=== PATIENT | female | born 1945 | race Caucasian/White ===

== ENCOUNTER 2019-06-03 02:11 | Emergency (ER) | payer MEDICARE ==
[~2019-06-03] VITALS: Ht 172.7 cm; Wt 104.3 kg
[2019-06-03 02:20] VITALS: BP_SYST 139
--- NOTE | 2019-06-03 02:20 | NUR ---
Patient to ER bed 4 to gown for evaluation. Side rails up.
--- NOTE | 2019-06-03 02:30 | NUR ---
# 20 gauge angiocath placed to LAC. Use of asceptic technique. Opsite placed over site. Blood return noted. Blood for lab drawn from site. Flushed with 20 cc of normal saline. No evidence of infiltration noted. Patient tolerated well.
--- NOTE | 2019-06-03 02:30 | NUR ---
Pt brought in by [facility]. Pt awake, alert, oriented x4 upon presenting to the ED. [facility] S[facility] states that patient was found in bed with blood sugar of 42, unresponsive. Unable to obtain IV access, pt was given 1ml glucagon. Recheck of blood sugar at 0230 was 117mg/dl. Pt states she has no recollection of events. Pt Denies chest pain, nausea, vomiting diarrhea, shortness of breath. Pt restin gin ED bed no signs of distress at this time. Pt remains to be lethargic
--- NOTE | 2019-06-03 03:00 | NUR ---
Pt family bedside. Speaking with patient
--- NOTE | 2019-06-03 03:15 | NUR ---
Pt given additional warm blanket and non-skid socks
[2019-06-03 03:29] LABS: BASOPHILS % (AUTO) 0.3 % (0.0-2.0); EOSINOPHILS # (AUTO) 0.1 K/uL (0.0-0.4); EOSINOPHILS % (AUTO) 0.3 % (0.0-4.0); HEMATOCRIT 34.3 % (36-48); HEMOGLOBIN 11.3 g/dL (12.0-16.0); LYMPHOCYTES # (AUTO) 1.6 K/uL (1.0-5.5); LYMPHOCYTES % (AUTO) 8.6 % (20.5-51.5); MEAN CORPUSCULAR HEMOGLOBIN 29 pg (27-31); MEAN CORPUSCULAR HGB CONC 33 % (32-36); MEAN CORPUSCULAR VOLUME 89 fL (79.0-98.0); MONOCYTES # (AUTO) 0.8 K/uL (0.0-1.0); MONOCYTES % (AUTO) 4.5 % (1.7-9.3); NEUTROPHILS # (AUTO) 15.7 K/uL (1.8-7.7); NEUTROPHILS % (AUTO) 86.3 % (40.0-70.0); PLATELET COUNT (AUTO) 242 K/uL (130-430); RED BLOOD CELL COUNT(AUTO) 3.86 MIL/uL (4.2-6.2); RED CELL DISTRIBUTION WIDTH 12.8 % (9.0-15.0); WHITE BLOOD COUNT (AUTO) 18.2 K/uL (4.8-10.8)
--- NOTE | 2019-06-03 03:30 | NUR ---
Pt given small juice and turkey sandwich
[2019-06-03 03:45] LABS: ANION GAP 9 (5-15); CALCIUM 9.1 mg/dL (8.4-11.0); CHLORIDE 99 mmol/L (98-107); CREATININE 0.85 mg/dL (0.55-1.30); GLUCOSE 186 mg/dL (70-99); POTASSIUM 3.6 mmol/L (3.5-5.1); SODIUM SERUM 136 mmol/L (136-145); UREA NITROGEN, BLOOD 30 mg/dL (8-21)
[2019-06-03 03:52] LABS: ALANINE AMINOTRANSFERASE 14 U/L (12-78); ALBUMIN 3.2 g/dL (3.4-4.8); ASPARTATE AMINOTRANSFERASE 22 U/L (10-37); TOTAL BILIRUBIN 0.1 mg/dL (0.0-1.0)
--- NOTE | 2019-06-03 04:30 | NUR ---
PT RESTING IN ED BED COMFORTABLY. NO ACUTE DISTRESS NOTED AT THIS TIME
[2019-06-03 06:25] VITALS: BP_SYST 140
--- NOTE | 2019-06-03 06:25 | NUR ---
Patient to be transferred to [facility]. Is being transferred due to higher level of care. Receiving facility has accepting physician and available space. ER physician has signed transfer form. Patient or responsible republican has agreed to transfer and signed form. Patient belongings inventoried and will be sent with patient. Copy of nursing notes, lab reports, EKG, Physicians Orders and X-rays to be sent with patient. Report called to SUDHIR Guy at receiving facility. Receiving physician is . [facility] on scene for pickup/transport. report given to Crew
== END 2019-06-03 06:25 | disposition short-term general hospital (02) ==
LOC: SED 02:11
DX: E11.649 Type 2 diabetes mellitus with hypoglycemia without coma (principal)
CPT/HCPCS: 36415; 80053; 82962; 83605; 85025; 87040-TC; 93005; 99284; 99285

== ENCOUNTER 2023-01-22 22:23 | Emergency (ER) | payer MEDICARE ==
[~2023-01-22] VITALS: Ht 162.6 cm; Wt 63.5 kg
[2023-01-22 22:30] VITALS: BP_SYST 171; PULSE 94; RESP 18; TEMP 97.9; O2SAT 98
[2023-01-22] MEDS ORDERED: D5NS 1,000 ML IV ONE (23:00)
[2023-01-22] MEDS ORDERED: LIP40 PO (23:27)
[2023-01-22] MEDS ORDERED: LOSA50TA3 PO (23:27)
[2023-01-22] MEDS ORDERED: ASA81 PO (23:27)
[2023-01-22] MEDS ORDERED: METF-1069 PO (23:27)
[2023-01-22] MEDS ORDERED: SER25 PO (23:27)
[2023-01-23 00:14] LABS: BASOPHILS # (AUTO) 0.1 K/uL (0.0-0.2); BASOPHILS % (AUTO) 0.5 % (0.0-2.0); EOSINOPHILS # (AUTO) 0.1 K/uL (0.0-0.4); EOSINOPHILS % (AUTO) 0.8 % (0.0-4.0); HEMATOCRIT 35.8 % (36-48); HEMOGLOBIN 11.9 g/dL (12.0-16.0); LYMPHOCYTES # (AUTO) 1.8 K/uL (1.0-5.5); LYMPHOCYTES % (AUTO) 13.6 % (20.5-51.5); MEAN CORPUSCULAR HEMOGLOBIN 30 pg (27-31); MEAN CORPUSCULAR HGB CONC 33 % (32-36); MEAN CORPUSCULAR VOLUME 89 fL (79.0-98.0); MONOCYTES # (AUTO) 0.7 K/uL (0.0-1.0); MONOCYTES % (AUTO) 5.6 % (1.7-9.3); NEUTROPHILS # (AUTO) 10.3 K/uL (1.8-7.7); NEUTROPHILS % (AUTO) 79.5 % (40.0-70.0); PLATELET COUNT (AUTO) 454 K/uL (130-430); RED BLOOD CELL COUNT(AUTO) 4.01 MIL/uL (4.2-6.2); RED CELL DISTRIBUTION WIDTH 12.7 % (9.0-15.0)
[2023-01-23] MEDS ORDERED: LORazepam 2 MG/ML VIAL IVP ONE (00:30)
[2023-01-23] MEDS ORDERED: DEXTROSE 50% JECT 50 ML DISP.SYRIN IVP ONE (00:30)
[2023-01-23 00:31] LABS: ALANINE AMINOTRANSFERASE 15 U/L (12-78); ALBUMIN 3.1 g/dL (3.4-4.8); ANION GAP 5 (5-15); ASPARTATE AMINOTRANSFERASE 29 U/L (10-37); CALCIUM 8.9 mg/dL (8.4-11.0); CHLORIDE 100 mmol/L (98-107); CREATININE 0.49 mg/dL (0.55-1.30); GLUCOSE 67 mg/dL (74-106); TOTAL BILIRUBIN 0.3 mg/dL (0.0-1.0); UREA NITROGEN, BLOOD 18 mg/dL (8-21)
[2023-01-23 01:04] LABS: ACETAMINOPHEN < 1 ug/mL (1-30)
[2023-01-23 01:05] LABS: LIPASE 56 U/L (73-393)
[2023-01-23] MEDS ORDERED: hydrALAZINE HCL 20 MG/ML VIAL IVP ONE (01:30)
[2023-01-23] MEDS: D5NS 1,000 ML IV ONE ×2 (05:30→07:08)
[2023-01-23 08:58] VITALS: BP_SYST 101; PULSE 78; RESP 16; TEMP 97.9; O2SAT 96
== END 2023-01-23 09:02 | disposition short-term general hospital (02) ==
LOC: SED 22:23
DX: E11.649 Type 2 diabetes mellitus with hypoglycemia without coma (principal); E16.2 Hypoglycemia, unspecified; Z79.899 Other long term (current) drug therapy
CPT/HCPCS: 99291; 70450; 87426; 80053; 83690; 85025; 36415; 76376; 96374; 96361; 96375; 82962; G0481; J2060; J7030; G0480